=== PATIENT | female | born 1975 | race Caucasian/White ===

== ENCOUNTER 2022-02-21 10:57 | Emergency (ER) | payer SELFPAY ==
[~2022-02-21] VITALS: Ht 165.1 cm; Wt 61.2 kg
[2022-02-21 11:28] VITALS: BP 115/77
[2022-02-21] MEDS ORDERED: ACETAMINOPHEN EXTRA STRENGTH 500 MG TAB PO ONE (15:30)
[2022-02-21] MEDS ORDERED: IBUPROFEN 600 MG TAB PO ONE (15:30)
--- NOTE | 2022-02-21 15:36 | NUR ---
46 y/o female, c/o [place], back pain and left arm pain in relation to fall yesterday. pt states she is coming from rehab facility and fell in the cafeteria and hit her back on the ground. denies syncope, loc. 10/10 sharp pain with movement. pmh: denies nka med: seroquel, ibuprofen
[2022-02-21] MEDS ORDERED: ACET-10509 PO (18:13)
[2022-02-21] MEDS ORDERED: IBUP-2213 PO (18:13)
--- NOTE | 2022-02-21 18:25 | NUR ---
Patient discharged with v/s stable. Written and verbal after care instructions given and explained. Patient alert, oriented and verbalized understanding of instructions. Ambulatory with steady gait. All questions addressed prior to discharge. ID band removed. Patient advised to follow up with PMD. Rx of tylenol and ibuprofen given. Patient educated on indication of medication including possible reaction and side effects. Opportunity to ask questions provided and answered.
== END 2022-02-21 18:25 | disposition home or self-care (01) ==
LOC: MED 10:57
DX: S22.32XA Fracture of one rib, left side, initial encounter for closed fracture (principal); M25.512 Pain in left shoulder; M54.6 Pain in thoracic spine; W18.30XA Fall on same level, unspecified, initial encounter; Y93.89 Activity, other specified; Y92.89 Other specified places as the place of occurrence of the external cause; Y99.8 Other external cause status
CPT/HCPCS: 71045; 73030; 99284